=== PATIENT | male | born 1960 | race Hispanic/Latino ===

== ENCOUNTER → 2018-05-25 | Outpatient (CLI) | payer OTHER ==
[~2018-05-25] MED LIST: DIATRIZOATE MEGL/DIATRIZOA SOD 30 ML BTL PO ONE; IOPAMIDOL 370 MG/ML 200 ML INFUS..BTL INJ ONE; SODIUM CHLORIDE 0.9% 50ML 50 ML ONE
--- NOTE | 2018-05-25 14:32 | Diagnostic Imaging Report ---
EXAM: CT ABDOMEN AND PELVIS with IV CONTRAST DATE: 05/25/2018 Time stamp on Exam: 10:59 AM INDICATION: Left lower quadrant pain COMPARISON: None TECHNIQUE: The abdomen and pelvis were scanned using a multidetector helical scanner. Coronal and sagittal reformations were obtained. Routine protocol performed. Low-dose technique was utilized. IV Contrast: 100 cc of Isovue-370 Oral Contrast: Gastrografin intermixed with water. Radiation Dose: Total DLP 691.18 mGy*cm Estimated effective dose: DLP x 0.015 x size factor FINDINGS: LOWER THORAX: Right hilar calcified granulomas. LIVER: Fatty infiltration of the liver. Several small hypodensities within the liver likely are cysts. BILIARY: Gallbladder is absent. No ductal dilatation. SPLEEN: No masses PANCREAS: No masses ADRENALS: No nodules KIDNEYS: Symmetric perfusion. No enhancing masses. There is a 2 mm right and left interpolar renal nonobstructing stones. No hydronephrosis. Lower pole right renal cyst. GI TRACT: No distention, wall thickening or evidence of obstruction. VESSELS: Unremarkable PERITONEUM/RETROPERITONEUM: No free air or fluid LYMPH NODES: No lymphadenopathy REPRODUCTIVE ORGANS: The prostate is enlarged measuring 6.5 x 6.2 x 6.0 cm. BLADDER: Nonspecific urinary bladder wall thickening. Significant indentation of the base of the bladder by the prostate. SOFT TISSUES: Small lipoma in the lateral subcutaneous region of the lower abdomen. BONES: Small focal lucency of the posterior superior aspect of the L5 vertebral body is nonspecific but could represent a small hemangioma. IMPRESSION: 1. Diffuse fatty infiltration of the liver. 2. Nonobstructing bilateral small renal stones. 3. Enlargement of the prostate gland. Signed by: Dr. Rocco Abarca DO on 05/25/2018 12:16 PM
== END ==
LOC: CT 08:55
PROVIDERS: ATTEND Family Medicine
DX: R10.814 Left lower quadrant abdominal tenderness (principal); K76.0 Fatty (change of) liver, not elsewhere classified; N20.0 Calculus of kidney; N40.0 Benign prostatic hyperplasia without lower urinary tract symptoms
CPT/HCPCS: 74177; Q9967